=== PATIENT | male | born 2000 | race Caucasian/White ===

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

== ENCOUNTER 2022-05-21 21:03 | Emergency (ER) | payer MEDICAID ==
[~2022-05-21] VITALS: Ht 182.9 cm; Wt 80.3 kg
[2022-05-21 21:21] VITALS: BP 118/70
[2022-05-21] MEDS ORDERED: IBUP-1984 PO (22:20)
[2022-05-21] MEDS ORDERED: cephalexin 250mg capsule PO ONE (22:20)
[2022-05-21] MEDS ORDERED: ketorolac tromethamine 15mg/ml inj. IM ONE (22:20)
[2022-05-21] MEDS ORDERED: CEPH250T PO (22:20)
== END 2022-05-21 22:48 | disposition home or self-care (01) ==
LOC: ER 21:03
DX: M79.671 Pain in right foot (principal); F32.9 Major depressive disorder, single episode, unspecified; F12.90 Cannabis use, unspecified, uncomplicated; Z79.899 Other long term (current) drug therapy
CPT/HCPCS: 73630; 96372; 99283; J1885

== ENCOUNTER 2022-10-29 18:59 | Emergency (ER) | payer MEDICAID ==
[~2022-10-29] VITALS: Ht 193 cm; Wt 72.7 kg
[2022-10-29 19:05] VITALS: BP 143/89
== END 2022-10-29 20:03 | disposition home or self-care (01) ==
LOC: ER 19:00
DX: F41.9 Anxiety disorder, unspecified (principal); F41.0 Panic disorder [episodic paroxysmal anxiety]; F32.A Depression, unspecified; F12.90 Cannabis use, unspecified, uncomplicated; Z79.2 Long term (current) use of antibiotics; Z79.899 Other long term (current) drug therapy
CPT/HCPCS: 99281

== ENCOUNTER 2023-08-03 13:36 | Emergency (ER) | payer MEDICAID | END 2023-08-03 15:42 | disposition left against medical advice (07) | LOC: ER 13:37 | DX: J02.9 Acute pharyngitis, unspecified (principal); Z53.21 Procedure and treatment not carried out due to patient leaving prior to being seen by health care provider ==

== ENCOUNTER 2023-09-08 15:44 | Emergency (ER) | payer MEDICAID ==
[~2023-09-08] VITALS: Ht 195.6 cm; Wt 93.2 kg
[2023-09-08 16:41] VITALS: BP 135/68
[2023-09-08] MEDS ORDERED: IBUP-1985 PO (17:06)
[2023-09-08 17:59] VITALS: PULSE 89; RESP 14; TEMP 98.5; O2SAT 98
== END 2023-09-08 18:01 | disposition home or self-care (01) ==
LOC: ER 15:45
DX: S93.402A Sprain of unspecified ligament of left ankle, initial encounter (principal); F12.90 Cannabis use, unspecified, uncomplicated; Z79.899 Other long term (current) drug therapy; Z79.2 Long term (current) use of antibiotics; W22.8XXA Striking against or struck by other objects, initial encounter; Y93.44 Activity, trampolining; Y92.838 Other recreation area as the place of occurrence of the external cause; Y99.8 Other external cause status
CPT/HCPCS: 73610; 99284; A6449

== ENCOUNTER 2025-03-21 10:53 | Emergency (ER) | payer MEDICAID ==
[~2025-03-21] VITALS: Ht 193 cm; Wt 87.0 kg
[~2025-03-21 10:53] MED LIST changes: +IBUP-1985 PO
--- NOTE | 2025-03-21 11:07 | Physician Documentation ---
History of Present Illness Chief Complaint: Abdominal Pain w/vomiting Stated Complaint: N/V Primary Medical Doctor: Unknown HPI 24-year-old male presents to the ED with a complaint of nausea vomiting x2 days. Patient denies regular marijuana use states he drank excessive alcohol 2 days ago. Patient is otherwise healthy. Denies any fevers. Reports that the pain is generally mid epigastric. Day of Onset: Mar 21, 2025 Medication Reconciliation Allergies: Coded Allergies: No Known Allergies (Unverified , 09/08/23) Scheduled Dextran 70/Hypromellose (Artificial Tears Eye Drops), 1 DROP EACHEYE QID Ibuprofen (Ibuprofen), 1 TAB PO Q8H Prednisone* (Prednisone*), 3 TAB PO DAILY Valacyclovir HCl (Valacyclovir), 1 TAB PO Q8H Scheduled PRN ONDANSETRON ODT 4mg tablet (Ondansetron Odt), 1 TAB PO Q6H PRN PRN for nausea/vomiting Past Medical History Past Medical History: Depression Past Surgical History: no surgical history Alcohol Use: None Drug Use: marijuana Lives with: Family Lives In: Home Review of Systems All Other Systems at this time: Reviewed and Negative ROS As stated above in the HPI, otherwise all systems are reviewed and negative. Physical Exam Vital Signs: Temperature: 98.1, Source: Oral, Heart Rate: 73, Respiratory Rate: 16, BP: 112/57, Pulse Oximetry: 100, Weight: 87.000 Oxygen Flow Rate: 0 Physical Exam General: Alert, no apparent distress. Respiratory: Lungs clear, no respiratory distress. Cardiovascular: Regular rate and rhythm, no murmurs. Gastrointestinal: Soft,tender mid epigastric Neurologic: Oriented x4. Psychiatric: Normal mood and affect. Skin: Normal color, warm and dry. No edema, no ecchymosis. Progress Results/Orders Results/Orders Vital Signs 03/21/25 11:03 Temp 98.1 Pulse 73 Resp 16 B/P (MAP) 112/57 Pulse Ox 100 O2 Flow Rate 0 Medical Decision Making Findings 24-year-old male presents with overall reassuring laboratory values.. He continues to have nausea and abdominal pain.. I am currently suspecting alcohol gastritis secondary to recent excessive alcohol use. He was him with fluids and antiemetics and Benadryl. Reported overall improved symptoms. Presents as a safe discharge at this time Differential Dx:Considerations: Include: AAA, Angina/AL, Aortic dissection, Appendicitis, Bowel obstruction, Cholangitis, Cholelithasis, Constipation, Diverticular disease, Esophageal rupture, Esophagitis, Gastritis/PUD, Gastroenteritis, GI hemorrhage, Hernia, Hepatitis, Inflammatory BD, Ischemic bowel, Pancreatitis, Porphyria, Testicular torsion, Trauma, intraabdominal, Urinary obstruction, Urinary tract infection, Urolithiasis, Other Departure Impression: Primary Impression: Acute gastritis Condition: Stable Discharge Instructions: Abdominal Pain (Nonspecific) Referrals: NO PRIMARY CARE PROVIDER (PCP) Prescriptions ONDANSETRON ODT 4mg tablet (ONDANSETRON ODT) 4 Mg Tab.rapdis 1 TAB PO Q6H PRN PRN for nausea/vomiting for 4 Days, #16 TAB 0 Refills Prov: VÍCTOR MARTIN NP 03/21/25 Education Educated: Patient Educated regarding: diagnosis Signature Scribe Signature: t Attestation: The note accurately reflects work and decisions made by me.Víctor Orourke NP 03/21/25 18:23 VÍCTOR MARTIN NP Mar 21, 2025 11:07
[2025-03-21 11:45] LABS: BASOPHILS % (AUTO) 0.2 % (0-1); EOSINOPHILS # (AUTO) 0.1 X10'3 (0-0.9); EOSINOPHILS % (AUTO) 0.5 % (0-6); HEMATOCRIT 42.1 % (42.0-52.0); HEMOGLOBIN 13.9 g/dl (14.0-17.9); LYMPHOCYTES # (AUTO) 1.6 X10'3 (1.1-4.8); LYMPHOCYTES % (AUTO) 13.5 % (21-51); MEAN CORPUSCULAR HEMOGLOBIN 29.8 PG (27.0-31.0); MEAN CORPUSCULAR HGB CONC 33.1 g/dL (33.0-36.5); MEAN PLATELET VOLUME 7.2 FL (7.4-10.4); MONOCYTES # (AUTO) 0.5 X10'3 (0-0.9); MONOCYTES % (AUTO) 4.7 % (2-12); NEUTROPHILS # (AUTO) 9.3 X10'3 (1.8-7.7); NEUTROPHILS % (AUTO) 81.1 % (42-75); PLATELET COUNT 235 X10'3 (140-440); RED BLOOD COUNT 4.68 X10'6 (4.70-6.10); RED CELL DISTRIBUTION WIDTH 13.5 % (11.5-14.5); WHITE BLOOD COUNT 11.5 X10'3 (4.5-11.0)
[2025-03-21 12:11] LABS: ALANINE AMINOTRANSFERASE 30 U/L (12-78); ALBUMIN 4.2 G/DL (3.4-5.0); ALBUMIN/GLOBULIN RATIO 1.3 (1.1-1.5); ALKALINE PHOSPHATASE 88 IU/L (46-116); ANION GAP 11 (8-16); ASPARTATE AMINO TRANSFERASE 16 U/L (10-37); BILIRUBIN,TOTAL 0.7 MG/DL (0.1-1.0); BLOOD UREA NITROGEN 16 MG/DL (7-18); BUN/CREATININE RATIO 15.4 (10.0-20.0); CALCIUM 8.8 MG/DL (8.5-10.1); CHLORIDE 104 MMOL/L (99-107); CREATININE 1.04 MG/DL (0.60-1.10); GLUCOSE 131 MG/DL (70-104); LIPASE 21 U/L (16-77); POTASSIUM 3.9 MMOL/L (3.5-5.1); SODIUM 139 MMOL/L (135-145); TOTAL CARBON DIOXIDE 24.1 MMOL/L (24-32); TOTAL PROTEIN 7.4 G/DL (6.4-8.2); eCRCL 137 ML/MIN; eGFR 89 ML/MIN
[2025-03-21] MEDS: ipratropium/albuterol 3ml nebule NEB ONE (14:19)
[2025-03-21 15:05] LABS: BILIRUBIN,URINE SMALL (Neg); CLARITY,URINE CLEAR (Clear); GLUCOSE, URINE NEGATIVE (Neg); KETONES,URINE 40 mg/dl (Neg); LEUKOCYTE ESTERASE ,URINE NEGATIVE (Neg); NITRITES, URINE NEGATIVE (Neg); OCCULT BLOOD,URINE NEGATIVE (Neg); PROTEIN,URINE TRACE mg/dl (Neg); UROBILINOGEN,URINE 0.2 E.U/dL (0.2-1.0)
[2025-03-21 15:07] LABS: UA COLLECTION TYPE URINAL
[2025-03-21 15:08] LABS: COLOR,URINE DARK YELLOW (Yellow)
[2025-03-21 15:15] LABS: BACTERIA,URINE FEW /HPF (Neg); FINE GRANULAR CAST 0-3 /LPF (NEGATIVE); MUCUS STRANDS MANY /LPF (Neg); RBC,URINE 0-2 /HPF (0-2); SQUAMOUS EPITHELIAL CELL,UR NONE SEEN /LPF (FEW); WBC,URINE 0-4 /HPF (0-4)
[2025-03-21] MEDS: methylPREDNISolone sod succ 125mg/2ml vial IV ONE (15:24)
[2025-03-21] MEDS: diphenhydrAMINE 50 mg/ml inj IV ONE (15:25)
[2025-03-21] MEDS: metoclopramide 5 mg/ml inj IV ONE (15:25)
[2025-03-21] MEDS: normal saline 1000ML IV soln IVB ONE (15:25)
[2025-03-21] MEDS ORDERED: ONDA-243 PO (16:07)
[2025-03-21 16:27] VITALS: BP 109/62; PULSE 94; RESP 16; TEMP 97.7; O2SAT 100
== END 2025-03-21 16:34 | disposition home or self-care (01) ==
LOC: ER 10:54
DX: K29.00 Acute gastritis without bleeding (principal); F32.A Depression, unspecified; F12.90 Cannabis use, unspecified, uncomplicated; Z79.1 Long term (current) use of non-steroidal anti-inflammatories (NSAID); Z79.899 Other long term (current) drug therapy
CPT/HCPCS: 36415; 80053; 81001; 83690; 85025; 96361; 96374; 96375; 99284; J1200; J2765; J2919; J7030

== ENCOUNTER 2025-08-20 03:11 | Inpatient (IN) | payer MEDICAID ==
[~2025-08-20] VITALS: Ht 193 cm; Wt 87.8 kg
[2025-08-20] VITALS (18 sets, daily range): BP systolic 102–138; BP diastolic 49–82; PULSE 85–129; RESP 13–20; TEMP 97.5–102.4; O2SAT 91–100
[~2025-08-20 03:11] MED LIST changes: -IBUP-1985 PO; +IBUP600T52 PO; +ONDA-243 PO
--- NOTE | 2025-08-20 03:21 | Physician Documentation ---
History of Present Illness ~ Chief Complaint: Abdominal Pain Stated Complaint: SEE CHIEF COMPLAINT ENMANUEL BUTTS Time Seen by MD: 03:18 Primary Medical Doctor: Unknown HPI Patient presents to the emergency room for evaluation for appendicitis. He is transferred from [facility]. He had began having some abdominal pain yesterday after eating breakfast and it continued to worsen therefore a went into the hospital for evaluation. CT scan at sending facility was positive for appendicitis. Zosyn ordered. Blood pressure is reassuring. Currently the patient is declining any additional pain or nausea medicines. Medication Reconciliation Allergies: Coded Allergies: No Known Allergies (Unverified , 08/20/25) Scheduled Dextran 70/Hypromellose (Artificial Tears Eye Drops), 1 DROP EACHEYE QID Ibuprofen (Ibuprofen), 1 TAB PO Q8H Prednisone* (Prednisone*), 3 TAB PO DAILY Valacyclovir HCl (Valacyclovir), 1 TAB PO Q8H Scheduled PRN ONDANSETRON ODT 4mg tablet (Ondansetron Odt), 1 TAB PO Q6H PRN PRN for nausea/vomiting Past Medical History Past Medical History: Depression Past Surgical History: no surgical history Alcohol Use: None Drug Use: marijuana Lives with: Family Lives In: Home Review of Systems ROS All review of systems negative except as per HPI Physical Exam Vital Signs: Temperature: 98.9, Source: Oral, Heart Rate: 92, Respiratory Rate: 16, BP: 140/78, Pulse Oximetry: 100, Weight: 87.800 Physical Exam General: Patient is awake, alert, oriented x4 in no acute distress Head: Normocephalic and atraumatic. Eyes: Conjunctival normal. EOMI. PERRL. ENT: Mucous membranes moist. Neck: Supple, trachea is midline. Chest: Clear to auscultation bilaterally without rales, rhonchi, or wheezes. There is no accessory muscle use or retractions. Cardiac: RRR without murmurs, gallops, or rubs. Abd: Soft, nondistended, positive suprapubic tenderness to palpation Progress Results/Orders Results/Orders Vital Signs 08/20/25 03:13 Temp 98.9 Pulse 92 Resp 16 B/P (MAP) 140/78 Pulse Ox 100 Medical Decision Making Findings Patient presented to the emergency room for evaluation as a transfer from [facility] for appendicitis. Patient's blood pressures are reassuring. We will admit for definitive management. Diff Dx Pain:Considerations: Include: AAA, Angina/RI, Aortic dissection, Appendicitis, Bowel obstruction, Cholangitis, Cholecystitis, Cholelithasis, Constipation, Diverticular disease, Esophageal rupture, Esophagitis, Gastritis, Gastroenteritis, GI hemorrhage, Hepatitis, Hernia, Inflammatory BD, Ischemic bowel, Mass, Pancreatitis, Porphyria, PUD, Testicular torsion, Trauma, intraabdominal, Urinary obstruction, Urinary tract infection, Urolithiasis, Other Departure Disposition: HOME / SELF CARE / HOMELESS Impression: Primary Impression: Appendicitis Condition: Guarded Referrals: NO PRIMARY CARE PROVIDER (PCP) Critical Care Note Total Time (mins): 30 Critical Care Note The very real possibility of a deterioration of this patient's condition required the highest level of my preparedness for sudden, emergent intervention. I provided critical care services, which included medication orders, frequent reevaluations of the patient's condition and response to treatment, ordering and reviewing test results, and discussing the case with various consultants. Excludes time spent performing separately billable procedures. The critical care time associated with the care of the patient was 30 minutes not counting procedures Signature Scribe Signature: No scribe Attestation: The note accurately reflects work and decisions made by me.Vinod Sharma MD 08/20/25 03:20 VINOD SHARMA MD Aug 20, 2025 03:21
[2025-08-20] MEDS ORDERED: potassium Cl 20 mEq SR tablet PO PRN ×2 (03:55)
[2025-08-20] MEDS ORDERED: mag hydrox/Alum hydrox/simeth 30ml oral suspension PO PRN (03:55)
[2025-08-20] MEDS ORDERED: potassium Cl 40MEQ/1/2NS 520ml 520 ML IV PRN (03:55)
[2025-08-20] MEDS ORDERED: magnesium sulf-water 2g/50mL 50 ML IV PRN (03:55)
[2025-08-20] MEDS ORDERED: magnesium sulf-water 4G/100mL 100 ML IV PRN (03:55)
[2025-08-20] MEDS ORDERED: magnesium Cl slow-release 64mg tablet PO PRN (03:55)
[2025-08-20] MEDS ORDERED: magnesium hydroxide 30ml (MOM) UD suspension PO PRN (03:55)
[2025-08-20 04:32] LABS: MEAN PLATELET VOLUME 7.5 FL (7.4-10.4); RED CELL DISTRIBUTION WIDTH 13.2 % (11.5-14.5)
[2025-08-20] MEDS ORDERED: BUPR-297 PO (04:51)
[2025-08-20 05:10] LABS: CREATININE 1.36 MG/DL (0.60-1.10); TOTAL CARBON DIOXIDE 26.5 MMOL/L (24-32); eCRCL 105 ML/MIN; eGFR 66 ML/MIN
--- NOTE | 2025-08-20 05:35 | HISTORY AND PHYSICAL-Residence ---
History & Physical Providers to CC Resident Creating Document: VENKATESH STRANGE, RES ~ History of Present Illness Primary Medical Doctor: Unknown Reason for Admit\Complaint: Abdominal pain History of Present Illness A 24-year-old male with past medical history of [place] palsy, depression currently on bupropion (Wellbutrin), was transferred from [facility] with chief complaints of abdominal pain. The pain began acutely this morning after eating breakfast from [employer], initially epigastric and later localizing to the right lower quadrant, described as sharp and burning in quality. He reports associated nausea and 4-5 episodes of non-bilious, non- bloody emesis. Initially rated his pain as 10/10 in severity, partially improved after supportive medications in the ED but still persistent. He attempted antacids and Tylenol at home with no relief. He reported 1 episode of fever, but denied chills, chest pain, shortness of breath, diarrhea, hematemesis, melena, or hematochezia. He recalls two similar but less severe episodes in the past: one - 4 months ago prompting ED evaluation where he was treated and discharged, and another last month lasting about 2 hours and self resolving with antacids. On arrival, he was afebrile, hemodynamically stable, and in mild distress from abdominal pain. Labs from [facility] : leukocytosis at 14.7 K with left shift (88% neutrophils), Cr 1.21.36 (mildly elevated from baseline), normal lipase, normal liver enzymes, and mildly elevated glucose (124). CT abdomen/pelvis with IV contrast demonstrated acute appendicitis with an enlarged appendix (13 mm) without evidence of perforation, abscess, or free air. He was given IV fluids, analgesia, antiemetics, and empiric Zosyn. Allergies: Coded Allergies: No Known Allergies (Unverified , 08/20/25) Home Medications Home Medications Active Reported Bupropion HCl 75 Mg Tablet 1 Tab PO BID Past Medical History Past Medical History Depression Sharma's palsy Gastritis Tobacco use disorder Past Surgical History Surgical History Comment No past surgical history Past Social History Social History Comment Smokin-10 cigarettes a day since the age of 17 years Denied alcohol and illicit use of drugs Alcohol Use: None Drug Use: Marijuana Lives with: Family Lives In: Home ROS ROS Reviewed in full. All negative except for pertinent positive HPI. Exam Vitals: Vital Signs Date Time Temp Pulse Resp B/P (MAP) Pulse Ox O2 Delivery O2 Flow Rate FiO2 08/20/25 03:21 18 08/20/25 03:13 98.9 92 100 General: Awake , alert, and oriented x4, in mild acute distress HEENT: Atraumatic, normocephalic, EOMI, anicteric sclera ; pink conjunctiva Neck: Trachea midline. Supple, full range of motion, no JVD Cardiac: Regular rhythm, regular rate with no murmurs all over the precordium. Respiratory: Equal breath sounds bilaterally, no tachypnea, no wheezing ,rub or rales, Chest wall is symmetric and without deformity. Gastrointestinal: Abdomen symmetric, non-distended, soft, severe tender on palpation: Right lower quadrant 7/10 intensity Left lower quadrant 6/10 in intensity Hypogastric region 4/10 normal bowel sounds x4 quadrant, normoactive, no hepatosplenomegaly Musculoskeletal: No pedal edema, no cyanosis Neurological: Mental status exam: alert and consciousness, orientation, memory, speech - Cranial nerve test: Cranial nerves 2-12 intact - Motor system: Nutrition, Tone 3+, Power 5/5, no involuntary movements - Sensory system: Intact - Reflex testing: Biceps, triceps and knee reflexes 2+ - Cerebellar: Normal Skin: Warm and dry Diagnostic Data Last Recorded Lab Results: 08/20/2541908/20/25 042 Advance Care Planning Advanced Care plannin - 30 Minutes Additional Plan Assessment: 24-year-old male with acute uncomplicated appendicitis confirmed on CT. Clinically stable with no perforation or abscess. Mild pre-renal NAOMI likely from vomiting causing dehydration. Acute Appendicitis (Uncomplicated Acute appendicitis without perforation or gangrene) Espinosa Score - 8/10 - High probability AIR Score - 5/12 - Intermediate risk Surgery was not consulted in the ED, please consult surgery in a.m. for appendectomy Patient is currently NPO Transitioned to ceftriaxone + metronidazole per surgical protocol Continue IV fluids (NS 100 mL/hr). Analgesia (morphine) and antiemetics (ondansetron) p.r.n. Recurrent gastritis Recurrent episodes of epigastric burning with multiple ED visits in past Started PPI (Protonix 40 mg) Patient will benefit with p.o. Protonix 40 mg for 30 days on discharge Mild NAOMI (Cr 1.21.36)- prerenal- (vasomotor nephropathy) Likely pre-renal from dehydration Continue IV hydration, monitor BMP and urine output Leukocytosis (outside facility) SIRS negative Reactive to appendicitis Already improving; covered with empiric antibiotics Procalcitonin ordered History of [place] palsy: Stable, no acute issues. Depression: Continue home bupropion after med rec Tobacco use disorder: 4.5 pack years, substance abuse navigator consulted Code Status: full code DVT Prophylaxis: Heparin SQ Analgesia/ Sedation: Morphine Line/tubes: P IV GI Prophylaxis: Protonix Nutrition: NPO currently Venkatesh Strange MD Internal Medicine Resident, PGY-2 Plan reviewed with bedside team. Patient seen through remote audiovisual assessment through HIPAA compliant setup. All labs, flowsheets, and images reviewed Cumulative nonprocedural care time spent in directed patient care = 30 min Date of Service: Aug 20, 2025 Billing Provider: ALESHIA GARIBAY MD, GAURAV, RES Aug 20, 2025 05:35 ALESHIA GARIBAY MD Aug 20, 2025 06:11
[2025-08-20] MEDS: normal saline 1000ml 1,000 ML IV SCH (05:38)
[2025-08-20] MEDS: heparin, porcine 5000 units/ml vial SQ SCH (08:00)
[2025-08-20] MEDS: docusate sod 100mg capsule PO SCH (08:00)
[2025-08-20] MEDS: K and/or MAG REPLACEMENT MC SCH (08:00)
[2025-08-20] MEDS: acetaminophen 1,000mg/100ml IV 100 ML IV ONE (08:15)
[2025-08-20] MEDS: metroNIDAZOLE-Flagyl 500mg/NS 100 ML IV SCH (09:16)
[2025-08-20] MEDS: CefTRIAXone/D5W-Rocephin 1gm 50 ML IV SCH (09:19)
[2025-08-20] MEDS: ketorolac trometh 15mg/ml vial 15 MG/ML ML IV ONE (12:38)
--- NOTE | 2025-08-20 15:53 | PROGRESS NOTE ---
Progress Note ID Providers to CC ~ Progress Note Progress Note: pt seen and examined-findings consistent with appendicitis-pt needs mehran irene- possible open-discussed procedure including risks/benefits/alternatives SAMANTA KRAMER MD Aug 20, 2025 15:53
[2025-08-20] MEDS ORDERED: fentaNYL/PF 50MCG/1 ML 2ML syringe IV PRN ×2 (16:15)
[2025-08-20] MEDS: ringers solution, lacted 1,000 ML IV SCH (16:15)
[2025-08-20] MEDS ORDERED: hydrALAZINE 20mg/ml inj. IV PRN (16:15)
[2025-08-20] MEDS ORDERED: acetaminophen 1,000mg/100ml IV 100 ML IV PRN (16:15)
[2025-08-20] MEDS ORDERED: ondansetron/PF 4mg/2ml inj IV PRN (16:15)
[2025-08-20] MEDS ORDERED: labetalol 20mg/4ml (5mg/ml) syringe IV PRN (16:15)
[2025-08-20] MEDS ORDERED: HYDROmorphone/PF 0.2 MG/ML SYRINGE IV PRN ×2 (16:15)
[2025-08-20] MEDS: ondansetron/PF 4mg/2ml inj IV PRN (16:35)
[2025-08-20] MEDS ORDERED: vancomycin 1,000mg inj ONE (16:54)
[2025-08-20] MEDS ORDERED: BUPIVAcaine/PF 2.5mg/ml (0.25%) 10ml vial ONE (16:54)
[2025-08-20] MEDS ORDERED: midazolam 1 mg/ML 2ml injection ONE (17:39)
[2025-08-20] MEDS ORDERED: fentaNYL/PF 50MCG/1 ML 2ML syringe ONE (17:39)
[2025-08-20] MEDS ORDERED: dexamethasone sod phosphate 4mg/ml inj. ONE (18:02)
[2025-08-20] MEDS ORDERED: rocuronium 10mg/ml inj IV ONE (18:02)
[2025-08-20] MEDS ORDERED: propofol inj 20 ML IV ONE (18:02)
[2025-08-20] MEDS ORDERED: ceFOXitin 1000 MG inj ONE ×2 (18:02)
[2025-08-20] MEDS ORDERED: ondansetron/PF 4mg/2ml inj ONE (18:44)
[2025-08-20] MEDS ORDERED: glycopyrrolate 0.2mg/ml inj ONE (18:44)
[2025-08-20] MEDS ORDERED: morphine 4 MG/ML inj SYRINge IV PRN ×2 (18:51)
[2025-08-20] MEDS ORDERED: PCA WASTE DOCUMENTATION 1 MG ML MC SCH (19:10)
[2025-08-20] MEDS ORDERED: HYDROcodone/acetaminophen 10/325mg tab PO PRN (19:10)
--- NOTE | 2025-08-20 19:10 | OPERATIVE REPORT ---
Operative Report Providers to CC ~ Date of Procedure: Aug 20, 2025 Pre-Operative Diagnosis: ACUTE APPENDICITIS Post-Operative Diagnosis SAME as PRE-Op Procedure Performed mehran irene Surgeon: ramón daley Anesthesiologist: Jj Mario Type of Anesthesia: General Findings: appendicitis Estimated Blood Loss: min Specimen Removed: SAMANTA Cruz MD Aug 20, 2025 19:10
[2025-08-20] MEDS: ketorolac trometh 30MG/ML vial 30 MG/ML VIAL IV ONE (20:55)
[2025-08-20] MEDS: buPROPion 75mg tablet PO SCH (21:03)
[2025-08-21] VITALS (7 sets, daily range): BP systolic 99–129; BP diastolic 42–70; PULSE 67–99; RESP 14–20; TEMP 97.5–98.3; O2SAT 97–100
[2025-08-21 06:29] LABS: MEAN PLATELET VOLUME 7.8 FL (7.4-10.4); RED CELL DISTRIBUTION WIDTH 13.3 % (11.5-14.5)
--- NOTE | 2025-08-21 06:36 | OPERATIVE REPORT ---
DATE OF SURGERY: 08/20/2025 DICTATING PHYSICIAN: Hemanth Hamilton MD DATE OF OPERATION: 08/20/2025 PREOPERATIVE DIAGNOSIS: Acute appendicitis. POSTOPERATIVE DIAGNOSIS: Acute appendicitis. PROCEDURE PERFORMED: Laparoscopic appendectomy. SURGEON: Hemanth Hamilton MD HOSPITAL INTERN: None. ANESTHESIA: General. DRAINS: #19 Russel drain. INDICATIONS FOR OPERATION: A 24-year-old male transferred from the ER with acute appendicitis for a lap. INTRAOPERATIVE FINDINGS: Acute appendicitis with a large amount of purulence in the abdominal cavity. DESCRIPTION OF PROCEDURE: The patient was placed supine on the operating table. After induction of general anesthesia and placement of endotracheal tube, the abdomen was prepped and draped. A subumbilical incision was then made and a 12 mm port placed using open technique and pneumoperitoneum was begun by insufflation of CO2. Additional ports were placed in the left lower quadrant and one in the right. The robot was then brought to the field. The camera port was docked, the camera was placed and targeted. Additional ports were then docked and instruments placed. The abdomen was then explored, which showed a large amount of purulence throughout the peritoneal cavity. In the right lower quadrant, the appendix was found to be firmly adherent to the cecum. The appendix and cecum were identified, isolated and ligated with the HARRIET stapler and divided. The appendix ____. The appendix was then mobilized from the retrocecal area. Hemostasis was found to be adequate. The robot was removed from the field. The appendix was placed in lap bag and removed using the laparoscope. The abdomen was irrigated with a large amount of antibiotic-containing solution. An #19 Russel drain was placed through a port incision and directed into the right lower quadrant. Ports were then removed under laparoscopic vision with no evidence of active bleeding. was closed in layers. The skin was closed with clips and a dressing was applied. The patient was transferred to recovery in stable condition after reversing from general anesthesia. Hemanth Hamilton MD TID: [id number] RECEIPT: [id number] KB/KIR
[2025-08-21 06:56] LABS: CHOL/HDL RATIO 2.5 (0.00-4.99); CREATININE 1.34 MG/DL (0.60-1.10); LDL CHOLESTEROL 50 MG/DL (50-100); TOTAL CARBON DIOXIDE 24.3 MMOL/L (24-32); eCRCL 106 ML/MIN; eGFR 67 ML/MIN
[2025-08-21] MEDS: ketorolac trometh 30MG/ML vial 30 MG/ML VIAL IV ONE (11:45)
--- NOTE | 2025-08-21 11:53 | PROGRESS NOTE ---
Progress Note ID Providers to CC ~ Progress Note Progress Note: pain improving/vss/abd-drain output noted/labs noted a/p 1. s/p appy-slow progress/advance po as kyrie-home in am SAMANTA KRAMER MD Aug 21, 2025 11:53
--- NOTE | 2025-08-21 17:46 | PROGRESS NOTE- Residence ---
Progress Note - Resident Providers to CC Resident Creating Document: ASHTYN JC, KENNETH CC: RAFFI MURCIA MD ~ Antibiotic Timeout Antibiotic Ordered?: Yes Subjective Patient was seen and examined bedside, patient underwent his laparoscopic appendicectomy yesterday. He feels much better today and tells me that his pain has decreased drastically post surgery. Patient still has not passed gas yet, as per Dr. Hamilton patient will get discharged tomorrow in the a.m. No other acute overnight symptoms noted. Objective Vital Signs Date Time Temp Pulse Resp B/P (MAP) Pulse Ox O2 Delivery O2 Flow Rate FiO2 08/21/25 12:58 18 08/21/25 10:00 97.5 74 99/63 (75) 97 Room Air 08/21/25 09:47 0.0 Result Diagram: 08/21/2553208/21/25532 General: Awake, oriented to person, place and time. Not in distress HEENT: Conjunctive are pink, sclerae clear, no icterus, pupil is equal in both sides, reactive to light, no ear discharge, no pharyngeal erythema or an edema. Neck: Supple, no JVD, no lymphadenopathy and thyromegaly. Chest: Equal air entry on both lungs, no additional sounds no rhonchi no wheezing at the moment. Cardiovascular: S1-S2 regular sinus rhythm and, regular rate, no gallops, no rubs, no murmurs Abdomen: No visible peristalsis, Bowel sounds present on auscultation, soft, mild tenderness in the epigastrium, no guarding, no rigidity. Right-sided abdominal pain in place, dressings post laparoscopic procedure Extremities: No obvious deformities, no pitting edema bilaterally, capillary refill intact, peripheral pulsations are intact on both sides Central Nervous System: No focal neurological deficits, no motor or sensory weakness in all 4 extremities, could move all 4 extremities, 2+ deep tendon reflexes, negative Babinski. Musculoskeletal: No joint swelling, deformities, inflammations, and no scoliosis and back tenderness Skin: Warm and dry. Advance Care Planning Advanced Care plannin - 30 Minutes Plan Plan Acute Appendicitis (Uncomplicated Acute appendicitis without perforation or gangrene) Espinosa Score - 8/10 - High probability AIR Score - 5/12 - Intermediate risk Patient underwent laparoscopic appendectomy yesterday Continue ceftriaxone and metronidazole Recurrent gastritis Recurrent episodes of epigastric burning with multiple ED visits in past Continue Protonix 40 mg IV b.i.d. Patient will benefit with p.o. Protonix 40 mg for 30 days on discharge Mild NAOMI (Cr 1.21.36)- prerenal- (vasomotor nephropathy) Likely pre-renal from dehydration Continue IV hydration, monitor BMP and urine output Leukocytosis -which is expected post surgery History of [place] palsy: Stable, no acute issues. Depression Continue patient's home medication bupropion Tobacco use disorder: 4.5 pack years, substance abuse navigator consulted Code Status: full code DVT Prophylaxis: Heparin SQ Analgesia/ Sedation: KETOROLAC p.r.n. (patient does not want take any opioid medication) Line/tubes: PIV GI Prophylaxis: Protonix Nutrition: Clear liquid diet Disposition: We will continue to monitor the patient today, possible discharge in the a.m. as per Dr. Sotelo. Ashtyn Jc MD Internal medicine resident PGY-1 Date of Service: Aug 21, 2025 Billing Provider: RAFFI MURCIA MD Common Visit Codes: [id number] INP/OBS CARE(HIGH) ASHTYN JC, RES Aug 21, 2025 17:46 RAFFI MURCIA MD Aug 22, 2025 16:01
[2025-08-21] MEDS: ketorolac trometh 30MG/ML vial 30 MG/ML VIAL IV PRN (21:56)
[2025-08-22 06:00] VITALS: BP 132/55; PULSE 103; RESP 14; TEMP 100.9; O2SAT 95
[2025-08-22 06:09] LABS: MEAN PLATELET VOLUME 7.9 FL (7.4-10.4); RED CELL DISTRIBUTION WIDTH 13.4 % (11.5-14.5)
[2025-08-22 07:04] LABS: CREATININE 1.26 MG/DL (0.60-1.10); TOTAL CARBON DIOXIDE 23.1 MMOL/L (24-32); eCRCL 113 ML/MIN; eGFR 72 ML/MIN
[2025-08-22 08:21] VITALS: RESP 16
[2025-08-22 09:42] VITALS: TEMP 99.3
--- NOTE | 2025-08-22 11:54 | PROGRESS NOTE ---
Progress Note ID Providers to CC ~ Progress Note Progress Note: doing well/ok to dc SAMANTA KRAMER MD Aug 22, 2025 11:54
[2025-08-22] MEDS ORDERED: ACET-1008 PO (15:33)
[2025-08-22] MEDS ORDERED: IBUP600T52 PO (15:35)
[2025-08-22] MEDS ORDERED: PANT40TA54 PO (15:35)
--- NOTE | 2025-08-22 17:20 | DISCHARGE SUMMARY-Residence ---
Discharge Summary Providers to CC Resident Creating Document: YADIRA JC, KENNETH CC: RAFFI MURCIA MD ~ Discharge Summary Admission Diagnosis: ACUTE APPENDICITIS Hospital Course DATE OF ADMISSION: 08/20/25 DATE OF DISCHARGE: 08/22/25 Discharge Diagnosis\Comment: Acute Appendicitis (Uncomplicated Acute appendicitis without perforation or gangrene)-status post laparoscopic appendicectomy Recurrent gastritis Mild NAOMI (Cr 1.21.36)- prerenal- (vasomotor nephropathy) Leukocytosis History of [place] palsy Depression Tobacco use disorder Operations\Procedures: Laparoscopic appendicectomy Consultants: Surgeon- Complications: None Condition on DC: Stable New Medications: Ibuprofen (Ibuprofen) 600 Mg Tablet 1 TAB PO Q8H for pain for 5 Days, #15 TAB 0 Refills with food Pantoprazole Sodium (Pantoprazole Sodium) 40 Mg Tablet.dr 40 MG PO BKF for 7 Days, #7 TAB.SR Changed Medications: Acetaminophen (Tylenol) 325 Mg Tablet 1 TAB PO Q8H PRN for pain or fever for 5 Days, #15 TAB (Changed from: QDAY PRN; 30; 30) Continued Medications: Bupropion HCl (Bupropion HCl) 75 Mg Tablet 1 TAB PO BID Discharge Summary: HPI as per admitting physician: A 24-year-old male with past medical history of [place] palsy, depression currently on bupropion (Wellbutrin), was transferred from [facility] with chief complaints of abdominal pain. The pain began acutely this morning after eating breakfast from [employer], initially epigastric and later locali zing to the right lower quadrant, described as sharp and burning in quality. He reports associated nausea and 4-5 episodes of non-bilious, non-bloody emesis. Initially rated his pain as 10/10 in severity, partially improved after supportive medications in the ED but still persistent. He attempted antacids and Tylenol at home with no relief. He reported 1 episode of fever, but denied chills, chest pain, shortness of breath, diarrhea, hematemesis, melena, or hematochezia. He recalls two similar but less severe episodes in the past: one - 4 months ago prompting ED evaluation where he was treated and discharged, and another last month lasting about 2 hours and self resolving with antacids. On arrival, he was afebrile, hemodynamically stable, and in mild distress from abdominal pain. Labs from [facility] : leukocytosis at 14.7 K with left shift (88% neutr ophils), Cr 1.21.36 (mildly elevated from baseline), normal lipase, normal liver enzymes, and mildly elevated glucose (124). CT abdomen/pelvis with IV contrast demonstrated acute appendicitis with an enlarged appendix (13 mm) without evidence of perforation, abscess, or free air. He was given IV fluids, analgesia, antiemetics, and empiric Zosyn. Hospital course: A 24-year-old male with past medical history of [place] palsy, depression currently on bupropion (Wellbutrin), was transferred from [facility] with chief complaints of abdominal pain. Patient was eventually diagnosed with acute appendicitis. Initiated the patient on fluids, analgesics and antibiotics ceftriaxone metronidazole. Patient underwent laparoscopic appendicectomy Dr. Hemanth Sotelo. Patient has a history of recurrent gastritis, we initiated the patient on 40 mg Protonix IV b.i.d. patient had mild elevation of creatinine possibly due to vasomotor nephropathy, which eventually got better with hydration Recurrent episodes of epigastric burning with multiple ED visits in past. Patient has a history of Sharma's Passy which was stable and did not require any intervention. Continued patient's home medication bupropion for his depression. Patient history of tobacco use disorder substance abuse navigator was consulted Physical examination the time of discharge Patient was clinically stable and ready to be discharged and was cleared by the surgeon Dr. Sotelo General: Awake, oriented to person, place and time. Not in distress HEENT: Conjunctive are pink, sclerae clear, no icterus, pupil is equal in both sides, reactive to light, no ear discharge, no pharyngeal erythema or an edema. Neck: Supple, no JVD, no lymphadenopathy and thyromegaly. Chest: Equal air entry on both lungs, no additional sounds no rhonchi no wheezing at the moment. Cardiovascular: S1-S2 regular sinus rhythm and, regular rate, no gallops, no rubs, no murmurs Abdomen: No visible peristalsis, Bowel sounds present on auscultation, soft, mild tenderness in the epigastrium, no guarding, no rigidity. Right-sided abdominal pain in place, dressings post laparoscopic procedure Extremities: No obvious deformities, no pitting edema bilaterally, capillary refill intact, peripheral pulsations are intact on both sides Central Nervous System: No focal neurological deficits, no motor or sensory weakness in all 4 extremities, could move all 4 extremities, 2+ deep tendon reflexes, negative Babinski. Musculoskeletal: No joint swelling, deformities, inflammations, and no scoliosis and back tenderness Skin: Warm and dry. Vital Signs Date Time Temp Pulse Resp B/P (MAP) Pulse Ox O2 Delivery O2 Flow Rate FiO2 08/22/25 09:42 99.3 08/22/25 08:21 16 08/22/25 06:00 103 132/55 (80) 95 Room Air 08/21/25 22:00 0.0 Laboratory Tests Test 08/21/25 05:33 08/22/25 05:18 White Blood Count 13.8 X10'3 8.8 X10'3 Red Blood Count 4.08 X10'6 3.81 X10'6 Hemoglobin 12.3 g/dl 11.8 g/dl Hematocrit 36.7 % 34.3 % Mean Corpuscular Volume 90.0 FL 90.1 FL Mean Corpuscular Hemoglobin 30.2 PG 30.9 PG Mean Corpuscular Hemoglobin Concent 33.6 g/dL 34.3 g/dL Red Cell Distribution Width 13.3 % 13.4 % Platelet Count 163 X10'3 146 X10'3 Mean Platelet Volume 7.8 FL 7.9 FL Neutrophils (%) (Auto) 88.2 % 85.2 % Lymphocytes (%) (Auto) 7.8 % 9.7 % Monocytes (%) (Auto) 3.9 % 4.3 % Eosinophils (%) (Auto) 0 % 0.7 % Basophils (%) (Auto) 0.1 % 0.1 % Neutrophils # (Auto) 12.2 X10'3 7.5 X10'3 Lymphocytes # (Auto) 1.1 X10'3 0.9 X10'3 Monocytes # (Auto) 0.5 X10'3 0.4 X10'3 Eosinophils # (Auto) 0.0 X10'3 0.1 X10'3 Basophils # (Auto) 0.0 X10'3 0.0 X10'3 CBC Comment Sodium Level 141 MMOL/L 139 MMOL/L Potassium Level 4.1 MMOL/L 3.8 MMOL/L Chloride Level 108 MMOL/L 108 MMOL/L Carbon Dioxide Level 24.3 MMOL/L 23.1 MMOL/L Anion Gap 9 8 Blood Urea Nitrogen 15 MG/DL 10 MG/DL Creatinine 1.34 MG/DL 1.26 MG/DL Estimated GFR/1.73 m2 67 ML/MIN 72 ML/MIN BUN/Creatinine Ratio 11.2 7.9 Glucose Level 122 MG/DL 110 MG/DL Calcium Level 8.0 MG/DL 7.8 MG/DL Magnesium Level 1.9 MG/DL 1.6 MG/DL Total Bilirubin 0.6 MG/DL 0.5 MG/DL Aspartate Amino Transf (AST/SGOT) 13 U/L 28 U/L Alanine Aminotransferase (ALT/SGPT) 19 U/L 28 U/L Alkaline Phosphatase 62 IU/L 63 IU/L Total Protein 6.4 G/DL 6.3 G/DL Albumin 3.0 G/DL 2.8 G/DL Globulin 3.4 G/DL 3.5 G/DL Albumin/Globulin Ratio 0.9 0.8 Triglycerides Level 25 MG/DL Cholesterol Level 110 MG/DL LDL Cholesterol 50 MG/DL HDL Cholesterol 44 MG/DL Cholesterol/HDL Ratio 2.5 Chemistry Comments Discharge advise Call Dr. Hamilton's office ([phone]) to set up a follow up appointment for next week. You can shower in 48hrs. No soaking in water, swimming, hot tubs or baths for 6 weeks. Increase oral fluid more than 1500 mL per day for 5-7 days. Repeat CBC BMP sed rate and procalcitonin in five days with PCP. No lifting, pushing or pulling more than 10lbs until Dr. Hamilton says. When showering do not rub incision sites, pat dry. Watch for signs of infections: If you see redness, swelling, warmth or drainage from incision site call Dr. Hamilton if you have those symptoms and have a fever, chills, nausea and vomiting go to the ER. If the Siddharth site dressing is saturated please change it. Please follow with your PCP in a week Please be cautious of your daily activity levels Please return to ED in case of any pain at the operated area or shortness of br eath *Problems/Diagnosis: (1) Acute gastritis Status: Acute (2) Appendicitis Status: Acute Total Time Spent on D/C: Up to 30 Minutes Counseling Services Smoking & Tobacco Cessation: 3-10 Minutes Date of Service: Aug 22, 2025 Billing Provider: RAFFI MURCIA MD Common Visit Codes: 69072-KYQ/OBS DISCH DAY >30min YADIRA JC, RES Aug 22, 2025 17:15 RAFFI MURCIA MD Aug 23, 2025 17:44
--- NOTE | 2025-08-23 01:56 | CONSULTATION ---
DATE OF CONSULTATION: 08/20/2025 DICTATING PHYSICIAN: Hemanth Hamilton MD REASON FOR CONSULTATION: Evaluation of abdominal pain. HISTORY OF PRESENT ILLNESS: The patient is a 24-year-old male who was transferred from [facility] with abdominal pain. Found to have acute appendicitis. Surgical evaluation is now requested. On further questioning, patient complains of abdominal pain with right lower quadrant involvement. Admits to nausea, vomiting. No diarrhea. PAST MEDICAL HISTORY: Notable for depression. PAST SURGICAL HISTORY: Unremarkable. HOME MEDICATIONS: Include Motrin, prednisone, valacyclovir, Dextran 70, Artificial Teardrop. ALLERGIES: None. SOCIAL HISTORY: Marijuana use. REVIEW OF SYSTEMS: See H and P. PHYSICAL EXAMINATION: GENERAL: A well-nourished male, in no distress. VITAL SIGNS: Unremarkable. HEART: Regular rhythm. LUNGS: Clear to auscultation. ABDOMEN: Shows right lower quadrant tenderness. EXTREMITIES: Unremarkable. NEUROLOGIC: Nonfocal. LABORATORY DATA: Labs include WBC 10, hematocrit of 44, platelets 190. Chemistries with BUN and creatinine of 14 and 1.36. IMAGING STUDIES: CAT scan reveals a dilated appendix. IMPRESSION: Acute appendicitis. PLAN: 1. Admit. 2. Hydrate. 3. IV antibiotics. 4. Robotic appendectomy. Hemanth Hamilton MD TID: [id number] RECEIPT: [id number] /
== END 2025-08-22 12:39 | disposition home or self-care (01) | DRG 234 ==
LOC: ER 03:12 → ED HOLD 03:59 → EDBEDREQ 05:14 → SUR 3N 05:25
PROVIDERS: ADMIT Internal Medicine Critical Care Medicine; ATTEND Internal Medicine
PROC: 8E0W4CZ Robotic Assisted Procedure of Trunk Region, Percutaneous Endoscopic Approach (ICD-10-PCS; 2025-08-20)
PROC: 0DTJ4ZZ Resection of Appendix, Percutaneous Endoscopic Approach (ICD-10-PCS; principal; 2025-08-20 17:31)
DX: K35.80 Unspecified acute appendicitis (principal); N17.0 Acute kidney failure with tubular necrosis; F17.210 Nicotine dependence, cigarettes, uncomplicated; F32.A Depression, unspecified; K29.00 Acute gastritis without bleeding
CPT/HCPCS: 36415; 80053; 80061; 82948; 83605; 83735; 84145; 85025; 87040; 87081; 96365; 96367; 99291; A4215; A4618; A6258; A6449; G0378; J0131; J0694; J0696; J1100; J1644; J1885; J2250; J2405; J2470; J2704; J2710; J3010; J3373; J3490; J7030; J7120

== ENCOUNTER → 2025-09-02 | Emergency (ER) | payer MEDICAID ==
[~2025-09-02] VITALS: Ht 193 cm; Wt 90.4 kg
[~2025-09-02] MED LIST changes: +ACET-1008 PO; +BUPR-297 PO; -DEXT15DR7 EACHEYE; -ONDA-243 PO; +PANT40TA54 PO; -PRED20TA PO; -VALA100031 PO
[2025-09-02 12:18] VITALS: BP 116/66; PULSE 96; RESP 18; TEMP 98.5; O2SAT 98
--- NOTE | 2025-09-02 14:46 | Physician Documentation ---
History of Present Illness ~ Chief Complaint: Staple Removal Stated Complaint: STAPLE REMOVAL Time Seen by MD: 13:05 Primary Medical Doctor: Unknown HPI This is a 24-year-old male who presents requesting suture and staple removal from surgical incision sites approximately 10 days after surgery for appendicitis. Patient reports no complications area including no pain or swelling. Tetanus Within 5 Years: Yes Medication Reconciliation Allergies: Coded Allergies: No Known Allergies (Unverified , 09/02/25) Scheduled Bupropion HCl (Bupropion HCl), 1 TAB PO BID, (Reported) Ibuprofen (Ibuprofen), 1 TAB PO Q8H Pantoprazole Sodium (Pantoprazole Sodium), 40 MG PO BKF Scheduled PRN Acetaminophen (Tylenol), 1 TAB PO Q8H PRN for pain or fever, (Reported) Past Medical History Past Medical History: Depression Past Surgical History: abdominal surgery Patient History: Patient reports no known family medical history. Alcohol Use: None Drug Use: marijuana Lives with: Family Lives In: Home Review of Systems ROS As stated above in the HPI, otherwise all systems are reviewed and negative. Physical Exam Vital Signs: Temperature: 98.5, Source: Temporal, Heart Rate: 96, Respiratory Rate: 18, BP: 116/66, Pulse Oximetry: 98, Weight: 90.400 Oxygen Flow Rate: 0 Physical Exam VITALS: Reviewed and as above. GENERAL: Alert, nontoxic appearing, no apparent distress. RESPIRATORY: No increased work of breathing, no respiratory distress, speaking in full clear sentences GI: Nontender to palpation MUSCULOSKELETAL: SKIN: Skin of abdomen several well healing surgical incision sites with nani in place, one surgical incision site appears well healing with suture in place, no evidence of wound dehiscence, minimal erythema, no induration, no purulent drainage, no tenderness at wound sites Procedure Suture/Staple Removal : Location: abdomen Removed without Complications: Yes Steri-Strips applied?: Yes Delayed Suture/Staple Removal: No Tolerated Procedure Well?: yes, no complications Procedure Note Sutures and nani removed by RN without complications Progress Results/Orders Results/Orders Vital Signs 09/02/25 12:18 Temp 98.5 Pulse 96 Resp 18 B/P (MAP) 116/66 Pulse Ox 98 O2 Flow Rate 0 Medical Decision Making Findings This is a 24-year-old male who presented requesting removal of sutures in nani to surgical wounds to abdomen approximately 10 days after an appendectomy, surgical sites appear healing well without evidence of complication. Nani and suture removed by RN without complication, the largest wound was reinforced with Steri-Strips to decrease the chance of dehiscence. Upon discharge there was no evidence of wound complication or dehiscence. Patient is otherwise well-appearing and appropriate for outpatient follow up. Patient provided home care instructions return to care precautions, and follow up instructions which he verbalized understanding of. Differential Dx:Considerations: Include: Cellulitis, Suture removal, Wound dehiscence, Other (Abscess) Departure Time of Disposition: 14:45 Disposition: 01 HOME / SELF CARE / HOMELESS Impression: Primary Impression: Removal of staple Additional Impression: Visit for suture removal Condition: Improved Discharge Instructions: Suture Removal, Care After Additional Instructions: Continue to use the Steri-Strips at the larger incision site for the next week to reinforce the wound, as reassuring the wounds appear to be well healing wash them gently daily. Please follow up with your primary care provider in the next few days. Please return to the emergency department for any new or worsening concerning symptoms. Referrals: NO PRIMARY CARE PROVIDER (PCP) Education Educated: Patient Educated regarding: diagnosis, treatment, prognosis, need for follow up Signature Scribe Signature: No scribe Attestation: The note accurately reflects work and decisions made by me.JOLIE Issa 09/02/25 21:52 NAZARIO SIMS Sep 02, 2025 14:46
== END | disposition home or self-care (01) ==
LOC: ER 12:09
DX: S31.119D Laceration without foreign body of abdominal wall, unspecified quadrant without penetration into peritoneal cavity, subsequent encounter (principal); F12.90 Cannabis use, unspecified, uncomplicated; X58.XXXD Exposure to other specified factors, subsequent encounter
CPT/HCPCS: 99282

== ENCOUNTER 2025-09-20 09:15 | Emergency (ER) | payer MEDICAID ==
[~2025-09-20] VITALS: Ht 193 cm; Wt 88.6 kg
--- NOTE | 2025-09-20 09:40 | Physician Documentation ---
History of Present Illness ~ General Stated Complaint: POST OP COMPLICATIONS Time Seen by MD: 11:43 Primary Medical Doctor: Unknown History of Present Illness Initial Comments 24-year-old male had a recent appendectomy on the of last month. He is here for a wound check after getting his nani removed states he has had increased drainage. He denies any fevers or nausea or abdominal pain. States there is some drainage from the site Medication Reconciliation Allergies: Coded Allergies: No Known Allergies (Unverified , 09/02/25) Scheduled Bupropion HCl (Bupropion HCl), 1 TAB PO BID, (Reported) Ibuprofen (Ibuprofen), 1 TAB PO Q8H Pantoprazole Sodium (Pantoprazole Sodium), 40 MG PO BKF Scheduled PRN Acetaminophen (Tylenol), 1 TAB PO Q8H PRN for pain or fever, (Reported) Past Medical History Past Medical History: Depression Past Surgical History: abdominal surgery Patient History: Patient reports no known family medical history. Alcohol Use: None Drug Use: marijuana Lives with: Family Lives In: Home Review of Systems All Other Systems at this time: Reviewed and Negative ROS As stated above in the HPI, otherwise all systems are reviewed and negative. Physical Exam Physical Exam Physical Exam General: Alert, no apparent distress. Respiratory: Lungs clear, no respiratory distress. Cardiovascular: Regular rate and rhythm, no murmurs. Gastrointestinal: Soft, nontender, nondistended. Bowels sounds present. Neurologic: Oriented x4. Psychiatric: Normal mood and affect. Skin: Normal color, warm and dry. No edema, no ecchymosis. Small umbilical incision no erythema no obvious drainage mild dehiscence Progress Results/Orders Results/Orders Completed Orders - VÍCTOR MARTIN NP Cbc/Diff (09/20/25 09:43) BMP (09/20/25 09:43) Vital Signs 09/20/25 09/20/25 09:36 12:16 Temp 98.7 98.6 Pulse 66 78 Resp 16 16 B/P (MAP) 111/69 125/74 Pulse Ox 100 99 O2 Flow Rate 0 Laboratory Tests Test 09/20/25 10:00 White Blood Count 5.6 Red Blood Count 4.40 L Hemoglobin 13.1 L Hematocrit 39.0 L Mean Corpuscular Volume 88.7 Mean Corpuscular Hemoglobin 29.9 Mean Corpuscular Hemoglobin Concent 33.6 Red Cell Distribution Width 13.9 Platelet Count 211 Mean Platelet Volume 7.3 L Neutrophils (%) (Auto) 51.3 Lymphocytes (%) (Auto) 35.5 Monocytes (%) (Auto) 9.7 Eosinophils (%) (Auto) 3.2 Basophils (%) (Auto) 0.3 Neutrophils # (Auto) 2.9 Lymphocytes # (Auto) 2.0 Monocytes # (Auto) 0.5 Eosinophils # (Auto) 0.2 Basophils # (Auto) 0.0 CBC Comment Sodium Level 140 Potassium Level 4.3 Chloride Level 105 Carbon Dioxide Level 31.5 Anion Gap 4 L Blood Urea Nitrogen 19 H Creatinine 1.22 H Estimated GFR/1.73 m2 74 BUN/Creatinine Ratio 15.6 Glucose Level 98 Calcium Level 8.7 Albumin 3.7 Chemistry Comments Medical Decision Making Additional information obtaine: N/A Findings Patient's labs did not show any signs infection in his laboratory values. This is not surprising based on his physical exam. I do not see any current concerns of infection as there was no redness or or purulent discharge. I am going to advise him to follow up with his general surgeon Differential Diagnosis h Departure Disposition: HOME / SELF CARE / HOMELESS Impression: Primary Impression: Wound Condition: Stable Discharge Instructions: Laceration Care, Adult Referrals: NO PRIMARY CARE PROVIDER (PCP) Education Educated regarding: diagnosis Signature Scribe Signature: h Attestation: Scribed for Víctor Martin Technical Associate by Víctor Orourke NP . 09/20/25 18:39 VÍCTOR MARTIN FIRE PREVENTION OFFICER Sep 20, 2025 09:40
[2025-09-20 10:10] LABS: MEAN PLATELET VOLUME 7.3 FL (7.4-10.4); RED CELL DISTRIBUTION WIDTH 13.9 % (11.5-14.5)
[2025-09-20 10:17] LABS: CREATININE 1.22 MG/DL (0.60-1.10); TOTAL CARBON DIOXIDE 31.5 MMOL/L (24-32); eCRCL 117 ML/MIN; eGFR 74 ML/MIN
[2025-09-20 12:16] VITALS: BP 125/74; PULSE 78; RESP 16; TEMP 98.6; O2SAT 99
== END 2025-09-20 12:18 | disposition home or self-care (01) ==
LOC: ER 09:16
DX: S31.115D Laceration without foreign body of abdominal wall, periumbilic region without penetration into peritoneal cavity, subsequent encounter (principal); F12.90 Cannabis use, unspecified, uncomplicated; F32.A Depression, unspecified; Z90.49 Acquired absence of other specified parts of digestive tract; Z79.899 Other long term (current) drug therapy; X58.XXXD Exposure to other specified factors, subsequent encounter
CPT/HCPCS: 36415; 80048; 85025; 99283